=== PATIENT | male | born 1975 | race Caucasian/White ===

== ENCOUNTER → 2019-07-02 | Outpatient (CLI) | payer OTHER ==
--- NOTE | 2019-07-11 08:31 | Polysomnography ---
DATE OF STUDY: 07/02/2019 REFERRING PHYSICIAN: Dr. Jeff Lopes STUDY: Interpretation of Home Sleep Test (HST). INTERPRETING PHYSICIAN: Dr. Jeff Lopes. IMPRESSION: 1. Mild obstructive sleep apnea with AHI of 11.0. 2. Mild snoring was noted. 3. No limb movements were observed. RECOMMENDATIONS: 1. Initiate titration for continuous positive airway pressure therapy (CPAP). 2. Consider conservative approach of an oral appliance for positional device. 3. ENT evaluation to consider surgical options to correct sleep-disordered breathing. 4. Avoid consumption of alcohol or some sedatives before bedtime. 5. Avoid caffeine and exercise within 3-4 hours prior to bedtime. 6. Weight reduction to ideal body weight. 7. Advise the patient that excessive daytime sleepiness could pose a danger to the patient and others while driving or operating heavy machinery, and to use caution until symptoms are treated and improved. 8. Patient to follow up with physician to discuss results of study. MD JEYSON Mcgovern/LENNIE /[id number] MTDD
== END ==
LOC: SLEEP 19:13
PROVIDERS: ATTEND Otolaryngology
DX: G47.33 Obstructive sleep apnea (adult) (pediatric) (principal)
CPT/HCPCS: 95806